=== PATIENT | female | born 1975 | race African-American/Black ===

== ENCOUNTER 2016-08-10 07:28 | Emergency (ER) | payer OTHER ==
[~2016-08-10] VITALS: Ht 170.2 cm; Wt 78.6 kg
[~2016-08-10 07:28] MED LIST: AMITRIPTYLINE H25 MG PO; BACTRIM,SEPT1 TABLET PO; CHANTIX0.5 MG; CHANTIX1 MG PO; COLACE100 MG PO; CYTOTEC200 MCG PO; Coumadin Protocol PO; Coumadin,Jantoven PO; DELTASONE1 MG PO; DICLOFENAC POTA50 MG PO; DICLOFENAC POTASSIUM PO; DICLOFENAC SOD100 MG PO; DIFLUCAN150 MG PO; DILAUDID2 MG PO; DILAUDID4 MG PO; DRONABINOL2.5 MG PO; DURAGESIC25 MCG TD; DURAGESIC50 MCG TD; Dilaudid PO; Duragesic TD; ELAVIL50 MG; ENDOCET 5-3251 EACH PO; FENTANYL TD; FENTANYL1 EAC1 TD; Feosol PO; Fosamax PO; HYDROXYCHLOROQ200 MG PO; Hydrodiuril,Oretic,E PO; INDOCIN50 MG PO; IRON18 MG PO; IRON325 M1; IRON325 M1 PO; LIDODERM 5% P1 PATCH TD; LOTREL 10/21 CAPSULE PO; LYRICA150 MG PO; LYRICA75 MG PO; Lopressor PO; MEDROL DOSEPAK4 MG PO; MELOXICAM7.5 MG PO; METHADONE10 MG PO; METHADONE5 MG PO; METHOTREXATE2.5 MG PO; MORPHINE PO; MORPHINE SULFAT15 M1 PO; MORPHINE SULFAT15 M3 PO; MORPHINE SULFAT15 MG PO; MORPHINE SULFAT30 M1 PO; MOTRIN800 MG PO; NAPROSYN250 MG PO; NAPROSYN500 MG PO; NAPROXEN500 MG PO; NEURONTIN100 MG PO; NEURONTIN300 MG PO; NICOTINE PATCH1 EAC1 TD; NITROFURANTOIN100 M3 PO; NORTRIPTYLINE H25 MG PO; NORTRIPTYLINE H50 MG PO; NUCYNTA ER100 MG PO; NUCYNTA50 MG PO; Neurontin PO; OPANA ER10 MG PO; OXYCONTIN30 MG PO; PANTOPRAZOLE SO40 MG PO; PERCOCET 10-321 EACH PO; PERCOCET 10/1 TABLET; PERCOCET 5/31 TABLET PO; PERCOCET 7.51 TABLET PO; PLAQUENIL200 MG PO; PREDNISONE10 M1 PO; PREDNISONE10 MG PO; PREDNISONE20 MG PO; PREDNISONE5 MG PO; PRINIVIL10 MG PO; Percocet 5/325,Endoc PO; Senokot S,Pericolace PO; Skelaxin PO; VALIUM2 MG PO; VICODIN,LORT1 TABLET PO; ZANAFLEX2 MG PO; ZANTAC150 MG PO; ZESTRIL,PRINIV2.5 MG PO; ZOLPIDEM TARTRAT5 MG PO; [UNRECOGNIZED DRUG - OTHER]; oxyCODONE PO; predniSONE PO
[2016-08-10 08:48] LABS: HEMATOCRIT 33.8 % (36.0-46.0); MCH 35.4 PG (29.0-34.0); MCHC 35.5 G/DL (30.0-36.0); MCV 99.7 FL (83-99); MEAN PLAT.VOLUME 11.7 uM^3 (9.5-12.4); PLATELET COUNT 229 K/uL (156-360); RBC DIS.WIDTH-CV 13.3 % (11.8-14.6); RBC DIS.WIDTH-SD 45.4 % (39-53); RED BLOOD COUNT 3.39 M/uL (3.80-5.20); WHITE BLOOD COUNT 6.8 K/uL (4.1-10.2)
[2016-08-10 09:22] LABS: ANION GAP 6 MEQ/L (2-14); CHLORIDE 104 MEQ/L (99-109); POTASSIUM 3.9 MEQ/L (3.7-5.4); SAMPLE HEMOLYSIS CHECK 1; SAMPLE ICTERIC CHECK 0; SAMPLE LIPEMIA CHECK 0; SODIUM 136 MEQ/L (136-147); TOTAL BILIRUBIN 0.4 MG/DL (0.0-1.0)
[2016-08-10 09:28] LABS: ALKALINE PHOSPHATASE 68 IU/L (3-129); GFR ESTIMATE (CALCULATED) > 59 mL/min/; GLUCOSE 71 mg/dL (70-99); UREA NITROGEN (BUN) 14 mg/dL (9-23)
[2016-08-10 10:01] LABS: ADD MIUA? YES; BILIRUBIN SMALL; BLOOD NEGATIVE; COLOR DK YELLOW ((YELLOW)); GLUCOSE (STRIP) NEGATIVE; KETONES NEGATIVE; LEUKOCYTES NEGATIVE; NITRITE NEGATIVE; PROTEIN (STRIP) TRACE; SPECIFIC GRAVITY 1.026 (1.000-1.030)
[2016-08-10 10:36] LABS: EPITHELIAL CELLS 1+; MUCUS 2+; RED BLOOD CELLS NONE SEEN /HPF (0-5); WHITE BLOOD CELLS NONE SEEN /HPF (0-5)
[2016-08-10 10:37] LABS: BACTERIA RARE; CASTS NONE SEEN /LPF; CRYSTALS NONE SEEN; UCUL ADDED? NO
[2016-08-10 14:24] VITALS: BP 133/72
[2016-08-12] MEDS ORDERED: CIPROFLOXACIN500 M1 PO (16:17)
== END 2016-08-10 14:31 | disposition home or self-care (01) ==
LOC: EME 07:28
PROVIDERS: Nurse Practitioner Family
DX: N70.11 Chronic salpingitis (principal); N83.201 Unspecified ovarian cyst, right side; I10 Essential (primary) hypertension; F17.200 Nicotine dependence, unspecified, uncomplicated
CPT/HCPCS: 76856; 80053; 81003; 85027; 99281; 99285; J1170; J1885; J2270; J2405; J7030

== ENCOUNTER 2016-08-14 06:04 | Day surgery (SDC) | payer OTHER ==
[2016-08-14] VITALS (8 sets, daily range): BP systolic 106–137; BP diastolic 63–91
[~2016-08-14] VITALS: Ht 170.2 cm; Wt 82.6 kg
[~2016-08-14 06:04] MED LIST changes: +CIPROFLOXACIN500 M1 PO
[2016-08-14 16:24] LABS: EOSINOPHIL (%) 0 % (0-5); HEMATOCRIT 29.7 % (36.0-46.0); IMMATURE GRANULOCYTE (%) 0.2 % (0.0-0.7); LYMPHOCYTE COUNT 0.5 K/uL (1.0-2.8); MCH 35.3 PG (29.0-34.0); MEAN PLAT.VOLUME 11.2 uM^3 (9.5-12.4); MONOCYTE (%) 3.7 % (3-12); MONOCYTE COUNT 0.2 K/uL (0-0.8); NEUTROPHIL (%) 87.5 % (45-76); PLATELET COUNT 226 K/uL (156-360); RBC DIS.WIDTH-CV 13.8 % (11.8-14.6); RBC DIS.WIDTH-SD 48.4 % (39-53); RED BLOOD COUNT 3.03 M/uL (3.80-5.20)
[2016-08-14 16:38] LABS: WHITE BLOOD COUNT 5.7 K/uL (4.1-10.2)
[2016-08-14 16:54] LABS: ANION GAP 9 MEQ/L (2-14); CHLORIDE 99 MEQ/L (99-109); GFR ESTIMATE (CALCULATED) > 59 mL/min/; GLUCOSE 122 mg/dL (70-99); POTASSIUM 3.5 MEQ/L (3.7-5.4); SAMPLE HEMOLYSIS CHECK 0; SAMPLE ICTERIC CHECK 0; SAMPLE LIPEMIA CHECK 0; SODIUM 133 MEQ/L (136-147); UREA NITROGEN (BUN) 12 mg/dL (9-23)
[2016-08-15] VITALS: BP 118/73
[2016-08-15 04:13] VITALS: BP 135/78
[2016-08-15 07:47] VITALS: BP 137/75
[2016-08-15 09:10] LABS: EOSINOPHIL (%) 2.2 % (0-5); EOSINOPHIL COUNT 0.2 K/uL (0-0.3); IMMATURE GRANULOCYTE (%) 0.2 % (0.0-0.7); LYMPHOCYTE COUNT 1.1 K/uL (1.0-2.8); MCH 34.8 PG (29.0-34.0); MCHC 35.7 G/DL (30.0-36.0); MCV 97.6 FL (83-99); MEAN PLAT.VOLUME 11.3 uM^3 (9.5-12.4); MONOCYTE (%) 5.3 % (3-12); MONOCYTE COUNT 0.5 K/uL (0-0.8); NEUTROPHIL (%) 80.3 % (45-76); NEUTROPHIL COUNT 7.6 K/uL (1.8-6.4); PLATELET COUNT 239 K/uL (156-360); RBC DIS.WIDTH-CV 13.5 % (11.8-14.6); RBC DIS.WIDTH-SD 47.3 % (39-53); RED BLOOD COUNT 2.87 M/uL (3.80-5.20)
[2016-08-15 09:16] LABS: WHITE BLOOD COUNT 9.5 K/uL (4.1-10.2)
[2016-08-15 09:20] LABS: ANION GAP 5 MEQ/L (2-14); CHLORIDE 104 MEQ/L (99-109); POTASSIUM 3.7 MEQ/L (3.7-5.4); SAMPLE HEMOLYSIS CHECK 0; SAMPLE ICTERIC CHECK 0; SAMPLE LIPEMIA CHECK 0; SODIUM 138 MEQ/L (136-147)
[2016-08-15 09:26] LABS: GFR ESTIMATE (CALCULATED) > 59 mL/min/; GLUCOSE 89 mg/dL (70-99); UREA NITROGEN (BUN) 10 mg/dL (9-23)
== END 2016-08-15 09:46 | disposition home or self-care (01) ==
LOC: SDC 06:04 → 2SOUTH 09:45 → SDC 15:09 → 2EAST 17:31
PROVIDERS: Obstetrics & Gynecology Gynecology
DX: N83.511 Torsion of right ovary and ovarian pedicle (principal); N70.11 Chronic salpingitis; N73.6 Female pelvic peritoneal adhesions (postinfective); N70.92 Oophoritis, unspecified; F17.200 Nicotine dependence, unspecified, uncomplicated; M51.26 Other intervertebral disc displacement, lumbar region; M19.90 Unspecified osteoarthritis, unspecified site; F12.10 Cannabis abuse, uncomplicated; D86.9 Sarcoidosis, unspecified; N64.4 Mastodynia; R10.31 Right lower quadrant pain; M79.1 Myalgia
CPT/HCPCS: 80048; 85025; 87086; 88305; G0378; J0690; J1170; J1644; J1885; J2175; J2250; J2405; J3010; J7050; J7120

== ENCOUNTER 2016-09-22 16:22 | Emergency (ER) | payer OTHER ==
[~2016-09-22] VITALS: Ht 170.2 cm; Wt 79.5 kg
[2016-09-22 16:31] VITALS: BP 126/101
== END 2016-09-22 20:00 | disposition left against medical advice (07) ==
LOC: EME 16:22
DX: M79.604 Pain in right leg (principal); M79.605 Pain in left leg; M79.671 Pain in right foot; M79.672 Pain in left foot; Z53.21 Procedure and treatment not carried out due to patient leaving prior to being seen by health care provider

== ENCOUNTER 2017-01-20 20:44 | Observation (INO) | payer OTHER ==
[~2017-01-20] VITALS: Ht 171.4 cm; Wt 84.2 kg
[2017-01-20] MEDS ORDERED: ENDOCET 5-3251 EACH PO (21:05)
[2017-01-20] MEDS ORDERED: NUCYNTA ER150 MG PO (21:05)
[2017-01-21 01:22] LABS: HEMATOCRIT 33.8 % (36.0-46.0); MCH 29.1 PG (29.0-34.0); MCHC 35.2 G/DL (30.0-36.0); MCV 82.6 FL (83-99); MEAN PLAT.VOLUME 10.8 uM^3 (9.5-12.4); PLATELET COUNT 175 K/uL (156-360); RBC DIS.WIDTH-CV 13.3 % (11.8-14.6); RBC DIS.WIDTH-SD 40.2 % (39-53); RED BLOOD COUNT 4.09 M/uL (3.80-5.20); WHITE BLOOD COUNT 6.1 K/uL (4.1-10.2)
[2017-01-21 01:31] LABS: CHLORIDE 107 mEq/L (99-109); POTASSIUM 3.5 mEq/L (3.7-5.4); SODIUM 137 mEq/L (136-147)
[2017-01-21 01:33] LABS: GLUCOSE 106 mg/dL (70-99)
[2017-01-21 01:34] LABS: ANION GAP 9 MEQ/L (2-14)
[2017-01-21 01:37] LABS: GFR ESTIMATE (CALCULATED) > 59 mL/min/
[2017-01-21 01:38] LABS: UREA NITROGEN (BUN) 6 mg/dL (9-23)
[2017-01-21 01:39] LABS: CREATINE KINASE 141 IU/L (1-294)
[2017-01-21 01:43] LABS: TROP-I INTERPRETATION NEGATIVE; TROPONIN-I < 0.01 ng/mL (0.0-0.30)
[2017-01-21 04:23] VITALS: BP 150/89
[2017-01-21 08:40] VITALS: BP 131/67
[2017-01-21 11:28] VITALS: BP 131/70
[2017-01-21] MEDS ORDERED: PREDNISONE20 MG PO (12:39)
== END 2017-01-21 14:00 | disposition home or self-care (01) ==
LOC: EME 20:44 → EDOF 01-21 02:57 → 5WEST 01-21 04:12
PROVIDERS: Physician Assistant Medical
DX: D86.9 Sarcoidosis, unspecified (principal); G89.29 Other chronic pain; F32.9 Major depressive disorder, single episode, unspecified; I10 Essential (primary) hypertension; K21.9 Gastro-esophageal reflux disease without esophagitis; F17.200 Nicotine dependence, unspecified, uncomplicated
CPT/HCPCS: 71020; 80048; 81003; 82550; 84484; 85027; 93005; 99281; 99285; G0378; J1170; J1650; J2270; J2930; J3010; J7030

== ENCOUNTER 2017-12-30 11:59 | Emergency (ER) | payer OTHER ==
[~2017-12-30] VITALS: Ht 170.2 cm; Wt 80.9 kg
[~2017-12-30 11:59] MED LIST changes: +NUCYNTA ER150 MG PO
[2017-12-30 14:01] LABS: HEMATOCRIT 33.2 % (36.0-46.0); HEMOGLOBIN 11.9 G/DL (11.9-15.5); MCH 31.2 PG (29.0-34.0); MCHC 35.8 G/DL (30.0-36.0); MCV 86.9 FL (83-99); PLATELET COUNT 229 K/uL (156-360); RBC DIS.WIDTH-CV 12.5 % (11.8-14.6); RBC DIS.WIDTH-SD 39.8 % (39-53); RED BLOOD COUNT 3.82 M/uL (3.80-5.20); WHITE BLOOD COUNT 3.7 K/uL (4.1-10.2)
[2017-12-30 14:15] LABS: CHLORIDE 106 mEq/L (99-109); POTASSIUM 3.8 mEq/L (3.7-5.4); SODIUM 140 mEq/L (136-147)
[2017-12-30 14:16] LABS: GLUCOSE 70 mg/dL (70-99)
[2017-12-30 14:20] LABS: CREATININE 0.8 mg/dL (0.6-1.3); GFR ESTIMATE (CALCULATED) > 59 mL/min/
[2017-12-30 14:21] LABS: UREA NITROGEN (BUN) 9 mg/dL (9-23)
[2017-12-30 14:30] LABS: ERTH.SED.RATE 18 MM/HR (0-20)
[2017-12-30 15:30] LABS: C-REACTIVE PROTEIN 4.1 MG/L (0-10)
[2017-12-30 15:52] VITALS: BP 140/70
== END 2017-12-30 15:52 | disposition home or self-care (01) ==
LOC: EME 11:59
PROVIDERS: Emergency Medicine
DX: M79.604 Pain in right leg (principal); M79.605 Pain in left leg; G89.29 Other chronic pain; D86.9 Sarcoidosis, unspecified; I10 Essential (primary) hypertension; K21.9 Gastro-esophageal reflux disease without esophagitis; F32.9 Major depressive disorder, single episode, unspecified; F17.200 Nicotine dependence, unspecified, uncomplicated; Z90.49 Acquired absence of other specified parts of digestive tract; Z90.710 Acquired absence of both cervix and uterus; Z96.643 Presence of artificial hip joint, bilateral; Z88.8 Allergy status to other drugs, medicaments and biological substances
CPT/HCPCS: 80048; 85027; 85651; 86140; 99281; 99284; J1885; J3010